=== PATIENT | male | born 1970 | race Two or more races ===

== ENCOUNTER 2019-06-13 09:20 | Inpatient (IN) | payer OTHER ==
[2019-06-13] MEDS ORDERED: Diltiazem 25 MG/5 ML SDV IVPUSH ONE (09:28)
[2019-06-13] MEDS ORDERED: Sodium Chloride 0.9% 1,000 ML IV ONE (09:28)
[2019-06-13] MEDS ORDERED: Rivaroxaban 15 MG Tab PO STA (09:36)
[2019-06-13 10:01] LABS: BLOOD UREA NITROGEN,BUN 13 mg/dL (7.0-18.0); CARBON DIOXIDE,CO2 26.9 mmol/L (21.0-32.0); CHLORIDE,CL 105 mmol/L (98-107); GLUCOSE RANDOM 104 mg/dL (74-106); POTASSIUM,K 4.1 mmol/L (3.5-5.1); SODIUM,NA 141 mmol/L (136-148)
--- NOTE | 2019-06-13 10:14 | EDM.PDOC ---
ED HPI GENERAL MEDICAL PROBLEM - General Chief Complaint: Cardiovascular Problem Stated Complaint: SOB,COUGH Time Seen by Provider: 06/13/19 10:13 Source of Information: Reports: Patient, Family - History of Present Illness INITIAL COMMENTS - FREE TEXT/NARRATIVE: HISTORY AND PHYSICAL: History of present illness: [Patient presents with shortness of breath began last night no chest pain headache dizziness no bowel or urine symptoms] Homans no fever nausea vomiting chills sweats Denies chronic illness disease her medications Review of systems: As per history of present illness and below otherwise all systems reviewed and negative. Past medical history: As per history of present illness and as reviewed below otherwise noncontributory. Surgical history: As per history of present illness and as reviewed below otherwise noncontributory. Social history: No reported history of drug or alcohol abuse. Family history: As per history of present illness and as reviewed below otherwise noncontributory. Physical exam: HEENT: Atraumatic, normocephalic, pupils reactive, negative for conjunctival pallor or scleral icterus, mucous membranes moist, throat clear, neck supple, nontender, trachea midline. Lungs: Clear to auscultation, breath sounds equal bilaterally, chest nontender. Heart: S1S2, regular, negative for clicks, rubs, or JVD. Abdomen: Soft, nondistended, nontender. Negative for masses or hepatosplenomegaly. Negative for costovertebral tenderness. Pelvis: Stable nontender. Genitourinary: Deferred. Rectal: Deferred. Extremities: Atraumatic, negative for cords or calf pain. Neurovascular unremarkable. Neuro: Awake, alert, oriented. Cranial nerves II through XII unremarkable. Cerebellum unremarkable. Motor and sensory unremarkable throughout. Exam nonfocal. Diagnostics: [ TBC CMP UA troponin INR ] Therapeutics: [ normal saline Cardizem ] Impression: [ A. fib with RVR currently rate controlled post medication ] Definitive disposition and diagnosis as appropriate pending reevaluation and review of above. - Related Data Allergies Allergy/AdvReac Type Severity Reaction Status Date / Time No Known Allergies Allergy Verified 06/13/19 09:27 Home Meds: Home Meds . [No Known Home Meds] 06/13/19 [History] Past Medical History - Past Health History Medical/Surgical History: Denies Medical/Surgical History Social & Family History - Family History Family Medical History: Noncontributory - Tobacco Use Smoking Status *Q: Never Smoker - Caffeine Use Caffeine Use: Reports: None - Recreational Drug Use Recreational Drug Use: No ED ROS GENERAL - Review of Systems Review Of Systems: See Below ED EXAM, GENERAL - Physical Exam Exam: See Below Course - Vital Signs Last Recorded V/S: Last Vital Signs Temp 95.7 F 06/13/19 09:24 Pulse 81 06/13/19 10:11 Resp 18 06/13/19 10:11 BP 110/83 06/13/19 10:11 Pulse Ox 95 06/13/19 10:11 - Orders/Labs/Meds Orders: Active Orders 24 hr Category Date Time Status EKG Documentation Completion [RC] STAT Care 06/13/19 09:29 Active Chest 1V Frontal [CR] Stat Exams 06/13/19 09:29 Taken UA RFX MARYLIN AND CULT IF INDIC [URIN] Stat Lab 06/13/19 09:28 Ordered Sodium Chloride 0.9% [Normal Saline] 1,000 ml Med 06/13/19 09:28 Active IV STAT Sodium Chloride 0.9% [Normal Saline] 1,000 ml Med 06/13/19 10:15 Active IV STAT Medication Orders Sodium Chloride (Normal Saline) 1,000 mls @ 999 mls/hr IV STAT ONE Stop: 06/13/19 10:28 Last Admin: 06/13/19 09:41 Dose: 999 mls/hr Sodium Chloride (Normal Saline) 1,000 mls @ 125 mls/hr IV STAT [facility] Labs: Laboratory Tests 06/13/19 06/13/19 06/13/19 Range/Units 09:30 09:30 09:30 WBC 13.26 H (4.0-11.0) K/uL RBC 4.80 (4.50-5.90) M/uL Hgb 15.8 (13.0-17.0) g/dL Hct 46.8 (38.0-50.0) % MCV 97.5 (80.0-98.0) fL MCH 32.9 H (27.0-32.0) pg MCHC 33.8 (31.0-37.0) g/dL RDW Std Deviation 46.6 (28.0-62.0) fl RDW Coeff of Yue 13 (11.0-15.0) % Plt Count 237 (150-400) K/uL MPV 11.50 (7.40-12.00) fL Neut % (Auto) 64.2 (48.0-80.0) % Lymph % (Auto) 26.8 (16.0-40.0) % [place] % (Auto) 6.7 (0.0-15.0) % Eos % (Auto) 1.9 (0.0-7.0) % Baso % (Auto) 0.4 (0.0-1.5) % Neut # (Auto) 8.5 H (1.4-5.7) K/uL Lymph # (Auto) 3.6 H (0.6-2.4) K/uL [place] # (Auto) 0.9 H (0.0-0.8) K/uL Eos # (Auto) 0.3 (0.0-0.7) K/uL Baso # (Auto) 0.1 (0.0-0.1) K/uL Nucleated RBC % 0.0 /100WBC Nucleated RBCs # 0 K/uL INR 0.96 Sodium 141 (136-148) mmol/L Potassium 4.1 (3.5-5.1) mmol/L Chloride 105 (98-107) mmol/L Carbon Dioxide 26.9 (21.0-32.0) mmol/L BUN 13 (7.0-18.0) mg/dL Creatinine 1.0 (0.8-1.3) mg/dL Est Cr Clr Drug Dosing 90.34 mL/min Estimated GFR (MDRD) > 60.0 ml/min Glucose 104 (74-106) mg/dL Calcium 8.7 (8.5-10.1) mg/dL Total Bilirubin 0.5 (0.2-1.0) mg/dL AST 16 (15-37) IU/L ALT 28 (14-63) IU/L Alkaline Phosphatase 73 (46-116) U/L Troponin I < 0.050 (0.000-0.056) ng/mL Total Protein 7.5 (6.4-8.2) g/dL Albumin 3.8 (3.4-5.0) g/dL Globulin 3.7 (2.6-4.0) g/dL Albumin/Globulin Ratio 1.0 (0.9-1.6) Meds: Medications Generic Name Dose Route Start Last Admin Trade Name Katie PRN Reason Stop Dose Admin Sodium Chloride 1,000 mls @ 999 mls/hr 06/13/19 09:28 06/13/19 09:41 Normal Saline IV 06/13/19 10:28 999 mls/hr STAT ONE Administration Sodium Chloride 1,000 mls @ 125 mls/hr 06/13/19 10:15 Normal Saline IV STAT [facility] Discontinued Medications Generic Name Dose Route Start Last Admin Trade Name Katie PRN Reason Stop Dose Admin Diltiazem HCl 25 mg 06/13/19 09:28 06/13/19 09:41 Diltiazem IVPUSH 06/13/19 09:29 25 mg ONETIME ONE Administration Rivaroxaban 15 mg 06/13/19 09:36 06/13/19 10:09 Xarelto PO 06/13/19 09:37 15 mg NOW STA Administration Departure - Departure Time of Disposition: 10:29 Disposition: Refer to Observation Condition: Fair Clinical Impression: Atrial fibrillation with RVR Referrals: PCP,None [Primary Care Provider] - Forms: ED Department Discharge - My Orders Last 24 Hours: My Active Orders 06/13/19 09:28 UA RFX MARYLIN AND CULT IF INDIC [URIN] Stat Sodium Chloride 0.9% [Normal Saline] 1,000 ml IV STAT 06/13/19 09:29 EKG Documentation Completion [RC] STAT Chest 1V Frontal [CR] Stat 06/13/19 10:15 Sodium Chloride 0.9% [Normal Saline] 1,000 ml IV STAT - Assessment/Plan Last 24 Hours: My Active Orders 06/13/19 09:28 UA RFX MARYLIN AND CULT IF INDIC [URIN] Stat Sodium Chloride 0.9% [Normal Saline] 1,000 ml IV STAT 06/13/19 09:29 EKG Documentation Completion [RC] STAT Chest 1V Frontal [CR] Stat 06/13/19 10:15 Sodium Chloride 0.9% [Normal Saline] 1,000 ml IV STAT
[2019-06-13] MEDS ORDERED: Sodium Chloride 0.9% 1,000 ML IV SCH (10:15)
--- NOTE | 2019-06-13 10:31 | CR ---
INDICATION: Chest pain, dyspnea. TECHNIQUE: Chest 1 view COMPARISON: None. FINDINGS: Cardiomegaly with increased pulmonary vascularity. Diffusely increased interstitial opacities greatest in the mid and lower lungs bilaterally. Atelectasis or fluid along the right fissure. No pleural effusion or pneumothorax. IMPRESSION: Cardiomegaly with increased pulmonary vascularity and diffusely increased interstitial opacities likely due to edema. Dictated by Jessica Prince MD @ Jun 13 2019 10:28AM Signed by Dr. Jessica Prince @ Jun 13 2019 10:30AM
[2019-06-13] MEDS ORDERED: Magnesium Sulfate/Water 2 GM in Premix Bag 1 BAG IV ONE (11:28)
--- NOTE | 2019-06-13 13:19 | PCM.HP.2 ---
H&P History of Present Illness - General Date of Service: 06/13/19 Admit Problem/Dx: Admission Diagnosis/Problem Admission Diagnosis/Problem Atrial fibrillation - History of Present Illness Initial Comments - Free Text/Narative: 48 yo male who presented with several month history of exertional dyspnea, paroxysmal nocturnal dyspnea, and orthopnea. Patient also reports a 20 LB weight gain. He denies any chest pain, cough or fevers. He denies any palpitations. I the ED he was noted to be in atrial fibrillation with a HR in the 130s. He was given IV diltizem and fluids with improvement in his heart rate. - Related Data Allergies/Adverse Reactions: Allergies Allergy/AdvReac Type Severity Reaction Status Date / Time No Known Allergies Allergy Verified 06/13/19 11:08 Home Medications: Home Meds . [No Known Home Meds] 06/13/19 [History] Past Medical History - Past Health History Medical/Surgical History: Denies Medical/Surgical History Social & Family History - Family History Family Medical History: Noncontributory - Tobacco Use Smoking Status *Q: Light Tobacco Smoker Years of Tobacco use: 4 Packs/Tins Daily: 0.1 Second Hand Smoke Exposure: No - Caffeine Use Caffeine Use: Reports: Coffee, Energy Drinks - Recreational Drug Use Recreational Drug Use: No H&P Review of Systems - Review of Systems: Review Of Systems: ROS reveals no pertinent complaints other than HPI. Exam - Exam Exam: See Below - Vital Signs Vital Signs: Last Vital Signs Temp 35.7 C 06/13/19 11:23 Pulse 59 L 06/13/19 11:23 Resp 18 06/13/19 11:23 BP 119/85 06/13/19 11:23 Pulse Ox 92 L 06/13/19 11:23 Weight: 123.921 kg - Exam General: Alert, Oriented HEENT: Mucosa Moist & [place] Lungs: Clear to Auscultation, Normal Respiratory Effort Cardiovascular: Regular Rate, Irregular Rhythm GI/Abdominal Exam: Soft, Non-Tender, No Distention Extremities: Non-Tender, No Pedal Edema Skin: Warm, Dry, Intact - Patient Data Lab Results Last 24 hrs: Laboratory Results - last 24 hr 06/13/19 06/13/19 06/13/19 Range/Units 09:30 09:30 09:30 WBC 13.26 H (4.0-11.0) K/uL RBC 4.80 (4.50-5.90) M/uL Hgb 15.8 (13.0-17.0) g/dL Hct 46.8 (38.0-50.0) % MCV 97.5 (80.0-98.0) fL MCH 32.9 H (27.0-32.0) pg MCHC 33.8 (31.0-37.0) g/dL RDW Std Deviation 46.6 (28.0-62.0) fl RDW Coeff of Yue 13 (11.0-15.0) % Plt Count 237 (150-400) K/uL MPV 11.50 (7.40-12.00) fL Neut % (Auto) 64.2 (48.0-80.0) % Lymph % (Auto) 26.8 (16.0-40.0) % [place] % (Auto) 6.7 (0.0-15.0) % Eos % (Auto) 1.9 (0.0-7.0) % Baso % (Auto) 0.4 (0.0-1.5) % Neut # (Auto) 8.5 H (1.4-5.7) K/uL Lymph # (Auto) 3.6 H (0.6-2.4) K/uL [place] # (Auto) 0.9 H (0.0-0.8) K/uL Eos # (Auto) 0.3 (0.0-0.7) K/uL Baso # (Auto) 0.1 (0.0-0.1) K/uL Nucleated RBC % 0.0 /100WBC Nucleated RBCs # 0 K/uL INR 0.96 Sodium 141 (136-148) mmol/L Potassium 4.1 (3.5-5.1) mmol/L Chloride 105 (98-107) mmol/L Carbon Dioxide 26.9 (21.0-32.0) mmol/L BUN 13 (7.0-18.0) mg/dL Creatinine 1.0 (0.8-1.3) mg/dL Est Cr Clr Drug Dosing 90.34 mL/min Estimated GFR (MDRD) > 60.0 ml/min Glucose 104 (74-106) mg/dL Calcium 8.7 (8.5-10.1) mg/dL Magnesium (1.8-2.4) mg/dL Total Bilirubin 0.5 (0.2-1.0) mg/dL AST 16 (15-37) IU/L ALT 28 (14-63) IU/L Alkaline Phosphatase 73 (46-116) U/L Troponin I < 0.050 (0.000-0.056) ng/mL B-Natriuretic Peptide (<100) PG/ML Total Protein 7.5 (6.4-8.2) g/dL Albumin 3.8 (3.4-5.0) g/dL Globulin 3.7 (2.6-4.0) g/dL Albumin/Globulin Ratio 1.0 (0.9-1.6) Urine Color Urine Appearance Urine pH (5.0-8.0) Ur Specific [place] (1.001-1.035) Urine Protein (NEGATIVE) mg/dL Urine Glucose (UA) (NEGATIVE) mg/dL Urine Ketones (NEGATIVE) mg/dL Urine Occult Blood (NEGATIVE) Urine Nitrite (NEGATIVE) Urine Bilirubin (NEGATIVE) Urine Urobilinogen (<2.0) EU/dL Ur Leukocyte Esterase (NEGATIVE) 06/13/19 06/13/19 06/13/19 Range/Units 09:30 09:30 11:25 WBC (4.0-11.0) K/uL RBC (4.50-5.90) M/uL Hgb (13.0-17.0) g/dL Hct (38.0-50.0) % MCV (80.0-98.0) fL MCH (27.0-32.0) pg MCHC (31.0-37.0) g/dL RDW Std Deviation (28.0-62.0) fl RDW Coeff of Yue (11.0-15.0) % Plt Count (150-400) K/uL MPV (7.40-12.00) fL Neut % (Auto) (48.0-80.0) % Lymph % (Auto) (16.0-40.0) % [place] % (Auto) (0.0-15.0) % Eos % (Auto) (0.0-7.0) % Baso % (Auto) (0.0-1.5) % Neut # (Auto) (1.4-5.7) K/uL Lymph # (Auto) (0.6-2.4) K/uL [place] # (Auto) (0.0-0.8) K/uL Eos # (Auto) (0.0-0.7) K/uL Baso # (Auto) (0.0-0.1) K/uL Nucleated RBC % /100WBC Nucleated RBCs # K/uL INR Sodium (136-148) mmol/L Potassium (3.5-5.1) mmol/L Chloride (98-107) mmol/L Carbon Dioxide (21.0-32.0) mmol/L BUN (7.0-18.0) mg/dL Creatinine (0.8-1.3) mg/dL Est Cr Clr Drug Dosing mL/min Estimated GFR (MDRD) ml/min Glucose (74-106) mg/dL Calcium (8.5-10.1) mg/dL Magnesium 1.8 (1.8-2.4) mg/dL Total Bilirubin (0.2-1.0) mg/dL AST (15-37) IU/L ALT (14-63) IU/L Alkaline Phosphatase (46-116) U/L Troponin I (0.000-0.056) ng/mL B-Natriuretic Peptide 353 H (<100) PG/ML Total Protein (6.4-8.2) g/dL Albumin (3.4-5.0) g/dL Globulin (2.6-4.0) g/dL Albumin/Globulin Ratio (0.9-1.6) Urine Color YELLOW Urine Appearance CLEAR Urine pH 5.5 (5.0-8.0) Ur Specific [place] 1.025 (1.001-1.035) Urine Protein NEGATIVE (NEGATIVE) mg/dL Urine Glucose (UA) NEGATIVE (NEGATIVE) mg/dL Urine Ketones NEGATIVE (NEGATIVE) mg/dL Urine Occult Blood NEGATIVE (NEGATIVE) Urine Nitrite NEGATIVE (NEGATIVE) Urine Bilirubin NEGATIVE (NEGATIVE) Urine Urobilinogen 0.2 (<2.0) EU/dL Ur Leukocyte Esterase NEGATIVE (NEGATIVE) Result Diagrams: 06/14/19 06:05 06/14/19 06:05 Problem List Initiated/Reviewed/Updated: Yes Orders Last 24hrs: Active Orders 24 hr Category Date Time Status Admission Status [Patient Status] [ADT] Stat ADT 06/13/19 10:31 Active Antiembolic Devices [RC] PER UNIT ROUTINE Care 06/13/19 13:06 Ordered EKG Documentation Completion [RC] STAT Care 06/13/19 09:29 Active Oxygen Therapy [RC] PRN Care 06/13/19 13:05 Ordered Telemetry Monitoring [Cardiac Monitoring] [RC] Q8H Care 06/13/19 10:35 Active Up ad [place] [RC] ASDIRECTED Care 06/13/19 13:05 Ordered VTE/DVT Education [RC] PER UNIT ROUTINE Care 06/13/19 13:05 Ordered Vital Signs [RC] Q4H Care 06/13/19 13:05 Ordered Fluid Restriction [DIET] Diet 06/13/19 Dinner Ordered Regular Diet [DIET] Diet 06/13/19 Breakfast Active Echo Comp wo Cont [US] Stat Exams 06/13/19 10:32 Taken BASIC METABOLIC PANEL,BMP [CHEM] AM Lab 06/14/19 05:11 Ordered BASIC METABOLIC PANEL,BMP [CHEM] AM Lab 06/15/19 05:11 Ordered BASIC METABOLIC PANEL,BMP [CHEM] AM Lab 06/16/19 05:11 Ordered CBC WITH AUTO DIFF [HEME] AM Lab 06/14/19 05:11 Ordered CBC WITH AUTO DIFF [HEME] AM Lab 06/15/19 05:11 Ordered CBC WITH AUTO DIFF [HEME] AM Lab 06/16/19 05:11 Ordered Furosemide [Lasix] Med 06/13/19 13:15 Ordered 40 mg IVPUSH DAILY Rivaroxaban [Xarelto] Med 06/14/19 17:30 Ordered 20 mg PO WITHDINNER Sequential Compression Device [OM.PC] Per Unit Routine Oth 06/13/19 13:06 Ordered Resuscitation Status Routine Resus Stat 06/13/19 13:05 Ordered Medication Orders Furosemide (Lasix) 40 mg IVPUSH DAILY [facility] Rivaroxaban (Xarelto) 20 mg PO WITHDINNER [facility] Assessment/Plan Comment:: 48 yo male admitted for atrial fibrillation with RVR and new onset CHF. atrial fibrillation: rate currently controlled. will continue to monitor on telemetry, Patient has been started on Xarelto CHF: echocardiogram report pending. Will give Lasix IV 40mg now.
[2019-06-13] MEDS: Furosemide 40 MG/4 ML VIAL IVPUSH SCH (13:23)
[2019-06-13] MEDS ORDERED: Benzocaine/Cetylpyridinium/Menthol Lozenge MUCMEM PRN (16:20)
[2019-06-14 06:41] LABS: BLOOD UREA NITROGEN,BUN 12 mg/dL (7.0-18.0); CHLORIDE,CL 106 mmol/L (98-107); GLUCOSE RANDOM 105 mg/dL (74-106); POTASSIUM,K 3.9 mmol/L (3.5-5.1); SODIUM,NA 141 mmol/L (136-148)
[2019-06-14] MEDS: Furosemide 40 MG/4 ML VIAL IVPUSH SCH ×2 (09:26→14:37)
[2019-06-14] MEDS ORDERED: Warfarin 10 MG Tab PO SCH (14:00)
[2019-06-14] MEDS: Warfarin Sliding Scale PO SCH (14:43)
--- NOTE | 2019-06-14 15:57 | PCM.PN ---
- General Info Date of Service: 06/14/19 Subjective Update: 48 y/o male admitted for AFib with RVR. This morning patient denies any chest pain, dyspnea. States he feels better. No palpitations. - Patient Data Vitals - Most Recent: Last Vital Signs Temp 30.3 C L 06/14/19 12:00 Pulse 103 H 06/14/19 12:00 Resp 20 06/14/19 12:00 BP 126/73 06/14/19 12:00 Pulse Ox 93 L 06/14/19 12:00 Weight - Most Recent: 117 kg I&O - Last 24 Hours: Intake & Output 06/14/19 06/14/19 06/14/19 06:59 14:59 22:59 Intake Total 700 Output Total 1000 Balance -300 Lab Results Last 24 Hours: Laboratory Results - last 24 hr 06/14/19 06/14/19 Range/Units 06:05 06:05 WBC 9.87 (4.0-11.0) K/uL RBC 4.48 L (4.50-5.90) M/uL Hgb 14.7 (13.0-17.0) g/dL Hct 43.4 (38.0-50.0) % MCV 96.9 (80.0-98.0) fL MCH 32.8 H (27.0-32.0) pg MCHC 33.9 (31.0-37.0) g/dL RDW Std Deviation 45.8 (28.0-62.0) fl RDW Coeff of Yue 13 (11.0-15.0) % Plt Count 216 (150-400) K/uL MPV 11.40 (7.40-12.00) fL Neut % (Auto) 56.5 (48.0-80.0) % Lymph % (Auto) 32.6 (16.0-40.0) % [place] % (Auto) 7.9 (0.0-15.0) % Eos % (Auto) 2.8 (0.0-7.0) % Baso % (Auto) 0.2 (0.0-1.5) % Neut # (Auto) 5.6 (1.4-5.7) K/uL Lymph # (Auto) 3.2 H (0.6-2.4) K/uL [place] # (Auto) 0.8 (0.0-0.8) K/uL Eos # (Auto) 0.3 (0.0-0.7) K/uL Baso # (Auto) 0.0 (0.0-0.1) K/uL Nucleated RBC % 0.0 /100WBC Nucleated RBCs # 0 K/uL Sodium 141 (136-148) mmol/L Potassium 3.9 (3.5-5.1) mmol/L Chloride 106 (98-107) mmol/L Carbon Dioxide 24.0 (21.0-32.0) mmol/L BUN 12 (7.0-18.0) mg/dL Creatinine 0.9 (0.8-1.3) mg/dL Est Cr Clr Drug Dosing 100.38 mL/min Estimated GFR (MDRD) > 60.0 ml/min Glucose 105 (74-106) mg/dL Calcium 8.3 L (8.5-10.1) mg/dL Med Orders - Current: Current Medications Benzocaine/Menthol (Cepacol Sore Throat) 1 lozenge MUCMEM Q6H PRN PRN Reason: Sore Throat Last Admin: 06/13/19 16:26 Dose: 1 lozenge Furosemide (Lasix) 40 mg IVPUSH BIDDIURETIC [facility] Last Admin: 06/14/19 14:37 Dose: 40 mg Warfarin Sodium (Coumadin Sliding Scale) 0 each PO DAILY@1400 [facility] Last Admin: 06/14/19 14:43 Dose: Not Given Discontinued Medications Diltiazem HCl (Diltiazem) 25 mg IVPUSH ONETIME ONE Stop: 06/13/19 09:29 Last Admin: 06/13/19 09:41 Dose: 25 mg Furosemide (Lasix) 40 mg IVPUSH DAILY [facility] Last Admin: 06/14/19 09:26 Dose: 40 mg Sodium Chloride (Normal Saline) 1,000 mls @ 999 mls/hr IV STAT ONE Stop: 06/13/19 10:28 Last Admin: 06/13/19 09:41 Dose: 999 mls/hr Sodium Chloride (Normal Saline) 1,000 mls @ 125 mls/hr IV STAT [facility] Last Admin: 06/13/19 10:32 Dose: 125 mls/hr Magnesium Sulfate 2 gm/ Premix 50 mls @ 50 mls/hr IV ONETIME ONE Stop: 06/13/19 12:27 Last Admin: 06/13/19 11:59 Dose: 50 mls/hr Rivaroxaban (Xarelto) 15 mg PO NOW STA Stop: 06/13/19 09:37 Last Admin: 06/13/19 10:09 Dose: 15 mg Rivaroxaban (Xarelto) 20 mg PO WITHDINNER [facility] Warfarin Sodium (Coumadin) 10 mg PO DAILY@1400 [facility] Stop: 06/14/19 14:01 Last Admin: 06/14/19 14:37 Dose: 10 mg - Exam General: Alert, Oriented, Cooperative, No Acute Distress Lungs: Clear to Auscultation. No: Crackles, Wheezing Cardiovascular: Regular Rate, Irregular Rhythm GI/Abdominal Exam: Normal Bowel Sounds, Soft, Non-Tender, No Distention Extremities: Normal Inspection, No Pedal Edema Skin: Warm, Dry - Problem List Review Problem List Initiated/Reviewed/Updated: Yes - My Orders Last 24 Hours: My Active Orders 06/14/19 11:54 Height and Weight [RC] DAILY Intake and Output Strict [RC] Q12H 06/14/19 11:55 Ambulate [RC] ASDIRECTED 06/14/19 Dinner Heart Healthy Diet [DIET] - Plan Plan:: A: 1. AFib, rate controlled. 2. Acute CHF exacerbation P: 1. AFib, rate controlled. Will start warfarin 10 mg PO once. Recheck INR and make adjustments as necessary. Discontinued Xarelto. Will need outpatient sleep study and EKG stress test. 2. Acute CHF exacerbation. Pending Echo results. Will give Lasix 40 mg IV BID. STrict I/O, daily weights. Dispo: likely DC tomorrow.
[2019-06-14] MEDS ORDERED: Rivaroxaban 10 MG Tab PO SCH (17:30)
[2019-06-15 05:29] LABS: BLOOD UREA NITROGEN,BUN 16 mg/dL (7.0-18.0); CARBON DIOXIDE,CO2 24.4 mmol/L (21.0-32.0); CHLORIDE,CL 106 mmol/L (98-107); GLUCOSE RANDOM 109 mg/dL (74-106); POTASSIUM,K 3.8 mmol/L (3.5-5.1); SODIUM,NA 141 mmol/L (136-148)
[2019-06-15] MEDS: Furosemide 40 MG/4 ML VIAL IVPUSH SCH ×2 (09:02→14:48)
[2019-06-15] MEDS: Lisinopril 5 MG Tab PO SCH (10:27)
[2019-06-15] MEDS: Metoprolol Succinate 50 MG Tab.ER PO SCH (10:35)
[2019-06-15] MEDS ORDERED: Warfarin 10 MG Tab PO SCH (14:00)
[2019-06-15] MEDS: Warfarin Sliding Scale PO SCH (14:42)
--- NOTE | 2019-06-15 18:07 | ECHO ---
The echocardiogram repot can be seen in this patient's EMR (Electronic Medical Records) in the REPORTS section. The echocardiogram report has also been scanned into PACS and can be seen there as well. IRVIN
--- NOTE | 2019-06-15 18:25 | PCM.PN ---
- General Info Date of Service: 06/15/19 Subjective Update: no acute events overnight. rate controlled. denies any chest pain, dyspnea. Feeling better. - Patient Data Vitals - Most Recent: Last Vital Signs Temp 35.3 C 06/15/19 16:00 Pulse 76 06/15/19 16:00 Resp 18 06/15/19 16:00 BP 114/66 06/15/19 16:00 Pulse Ox 94 L 06/15/19 16:00 Weight - Most Recent: 114 kg I&O - Last 24 Hours: Intake & Output 06/15/19 06/15/19 06/15/19 06:59 14:59 22:59 Intake Total 800 900 Output Total 675 1800 Balance 125 -900 Lab Results Last 24 Hours: Laboratory Results - last 24 hr 06/15/19 06/15/19 06/15/19 Range/Units 05:05 05:05 05:05 WBC 11.10 H (4.0-11.0) K/uL RBC 4.70 (4.50-5.90) M/uL Hgb 15.5 (13.0-17.0) g/dL Hct 45.4 (38.0-50.0) % MCV 96.6 (80.0-98.0) fL MCH 33.0 H (27.0-32.0) pg MCHC 34.1 (31.0-37.0) g/dL RDW Std Deviation 44.8 (28.0-62.0) fl RDW Coeff of Yue 13 (11.0-15.0) % Plt Count 210 (150-400) K/uL MPV 11.10 (7.40-12.00) fL Neut % (Auto) 60.4 (48.0-80.0) % Lymph % (Auto) 27.4 (16.0-40.0) % [place] % (Auto) 9.3 (0.0-15.0) % Eos % (Auto) 2.5 (0.0-7.0) % Baso % (Auto) 0.4 (0.0-1.5) % Neut # (Auto) 6.7 H (1.4-5.7) K/uL Lymph # (Auto) 3.0 H (0.6-2.4) K/uL [place] # (Auto) 1.0 H (0.0-0.8) K/uL Eos # (Auto) 0.3 (0.0-0.7) K/uL Baso # (Auto) 0.0 (0.0-0.1) K/uL Nucleated RBC % 0.0 /100WBC Nucleated RBCs # 0 K/uL INR 1.07 Sodium 141 (136-148) mmol/L Potassium 3.8 (3.5-5.1) mmol/L Chloride 106 (98-107) mmol/L Carbon Dioxide 24.4 (21.0-32.0) mmol/L BUN 16 (7.0-18.0) mg/dL Creatinine 1.0 (0.8-1.3) mg/dL Est Cr Clr Drug Dosing 90.34 mL/min Estimated GFR (MDRD) > 60.0 ml/min Glucose 109 H (74-106) mg/dL Calcium 9.0 (8.5-10.1) mg/dL Med Orders - Current: Current Medications Benzocaine/Menthol (Cepacol Sore Throat) 1 lozenge MUCMEM Q6H PRN PRN Reason: Sore Throat Last Admin: 06/13/19 16:26 Dose: 1 lozenge Furosemide (Lasix) 40 mg IVPUSH BIDDIURETIC [facility] Last Admin: 06/15/19 14:48 Dose: 40 mg Lisinopril (Prinivil) 5 mg PO DAILY [facility] Last Admin: 06/15/19 10:27 Dose: 5 mg Metoprolol Succinate (Toprol Xl) 50 mg PO DAILY [facility] Last Admin: 06/15/19 10:35 Dose: 50 mg Warfarin Sodium (Coumadin Sliding Scale) 0 each PO DAILY@1400 [facility] Last Admin: 06/15/19 14:42 Dose: Not Given Discontinued Medications Diltiazem HCl (Diltiazem) 25 mg IVPUSH ONETIME ONE Stop: 06/13/19 09:29 Last Admin: 06/13/19 09:41 Dose: 25 mg Furosemide (Lasix) 40 mg IVPUSH DAILY [facility] Last Admin: 06/14/19 09:26 Dose: 40 mg Sodium Chloride (Normal Saline) 1,000 mls @ 999 mls/hr IV STAT ONE Stop: 06/13/19 10:28 Last Admin: 06/13/19 09:41 Dose: 999 mls/hr Sodium Chloride (Normal Saline) 1,000 mls @ 125 mls/hr IV STAT [facility] Last Admin: 06/13/19 10:32 Dose: 125 mls/hr Magnesium Sulfate 2 gm/ Premix 50 mls @ 50 mls/hr IV ONETIME ONE Stop: 06/13/19 12:27 Last Admin: 06/13/19 11:59 Dose: 50 mls/hr Rivaroxaban (Xarelto) 15 mg PO NOW STA Stop: 06/13/19 09:37 Last Admin: 06/13/19 10:09 Dose: 15 mg Rivaroxaban (Xarelto) 20 mg PO WITHDINNER [facility] Warfarin Sodium (Coumadin) 10 mg PO DAILY@1400 [facility] Stop: 06/14/19 14:01 Last Admin: 06/14/19 14:37 Dose: 10 mg Warfarin Sodium (Coumadin) 10 mg PO 06/15/19@1400 [facility] Stop: 06/15/19 14:01 Last Admin: 06/15/19 14:48 Dose: 10 mg - Exam General: Alert, Oriented, Cooperative, No Acute Distress Lungs: Clear to Auscultation, Normal Respiratory Effort. No: Crackles, Wheezing Cardiovascular: Regular Rate, Irregular Rhythm GI/Abdominal Exam: Normal Bowel Sounds, Soft, Non-Tender Extremities: Pedal Edema Skin: Warm, Dry - Problem List Review Problem List Initiated/Reviewed/Updated: Yes - My Orders Last 24 Hours: My Active Orders 06/15/19 10:54 Communication Order [RC] PRN - Plan Plan:: A: 1. Acute CHF with reduced EF 20-25% 2. Afib, rate controlled on warfarin P: 1. Will continue to diurese with IV lasix. Continue with warfarin. Started metoprolol, lisinopril. Likely DC tomorrow. Will need follow-up with cardiology as outpatient.
[2019-06-16 06:17] LABS: BLOOD UREA NITROGEN,BUN 24 mg/dL (7.0-18.0); CARBON DIOXIDE,CO2 26.2 mmol/L (21.0-32.0); CHLORIDE,CL 104 mmol/L (98-107); GLUCOSE RANDOM 97 mg/dL (74-106); POTASSIUM,K 3.7 mmol/L (3.5-5.1); SODIUM,NA 140 mmol/L (136-148)
[2019-06-16] MEDS: Furosemide 40 MG/4 ML VIAL IVPUSH SCH ×2 (09:03→14:18)
[2019-06-16] MEDS: Metoprolol Succinate 50 MG Tab.ER PO SCH (09:04)
[2019-06-16] MEDS: Lisinopril 5 MG Tab PO SCH (09:05)
[2019-06-16 11:17] LABS: HEMOGLOBIN A1C 5.6 % (4.5-6.2)
[2019-06-16] MEDS ORDERED: Warfarin 10 MG Tab PO SCH (14:00)
[2019-06-16] MEDS: Warfarin Sliding Scale PO SCH (14:12)
--- NOTE | 2019-06-16 15:02 | PCM.PN ---
<Jean Sosa - Last Filed: 06/16/19 15:05> - General Info Date of Service: 06/16/19 Subjective Update: No acute events overnight. denies chest pain, dyspnea. Feels much better today he states. No palpitations, abdominal pain, diaphoresis. - Patient Data Vitals - Most Recent: Last Vital Signs Temp 35.1 C L 06/16/19 12:00 Pulse 96 06/16/19 12:00 Resp 18 06/16/19 12:00 BP 113/79 06/16/19 12:00 Pulse Ox 92 L 06/16/19 12:00 Weight - Most Recent: 113.6 kg I&O - Last 24 Hours: Intake & Output 06/15/19 06/16/19 06/16/19 22:59 06:59 14:59 Intake Total 900 900 120 Output Total 1800 750 Balance -900 150 120 Lab Results Last 24 Hours: Laboratory Results - last 24 hr 06/16/19 06/16/19 06/16/19 Range/Units 05:50 05:50 05:50 WBC 10.68 (4.0-11.0) K/uL RBC 4.76 (4.50-5.90) M/uL Hgb 15.5 (13.0-17.0) g/dL Hct 46.0 (38.0-50.0) % MCV 96.6 (80.0-98.0) fL MCH 32.6 H (27.0-32.0) pg MCHC 33.7 (31.0-37.0) g/dL RDW Std Deviation 45.4 (28.0-62.0) fl RDW Coeff of Yue 13 (11.0-15.0) % Plt Count 234 (150-400) K/uL MPV 11.40 (7.40-12.00) fL Neut % (Auto) 57.7 (48.0-80.0) % Lymph % (Auto) 30.2 (16.0-40.0) % [place] % (Auto) 8.9 (0.0-15.0) % Eos % (Auto) 2.9 (0.0-7.0) % Baso % (Auto) 0.3 (0.0-1.5) % Neut # (Auto) 6.2 H (1.4-5.7) K/uL Lymph # (Auto) 3.2 H (0.6-2.4) K/uL [place] # (Auto) 1.0 H (0.0-0.8) K/uL Eos # (Auto) 0.3 (0.0-0.7) K/uL Baso # (Auto) 0.0 (0.0-0.1) K/uL Nucleated RBC % 0.0 /100WBC Nucleated RBCs # 0 K/uL INR 1.17 Sodium 140 (136-148) mmol/L Potassium 3.7 (3.5-5.1) mmol/L Chloride 104 (98-107) mmol/L Carbon Dioxide 26.2 (21.0-32.0) mmol/L BUN 24 H (7.0-18.0) mg/dL Creatinine 1.1 (0.8-1.3) mg/dL Est Cr Clr Drug Dosing 81.85 mL/min Estimated GFR (MDRD) > 60.0 ml/min Glucose 97 (74-106) mg/dL Hemoglobin A1c (4.5-6.2) % Calcium 9.1 (8.5-10.1) mg/dL Triglycerides (0-200) mg/dL Cholesterol (50-200) mg/dL LDL Cholesterol, Calc (60-180) mg/dL VLDL Cholesterol (5-55) mg/dL HDL Cholesterol (40-60) mg/dL Cholesterol/HDL Ratio (3.3-6.0) TSH 3rd Generation (0.36-3.74) uIU/mL 06/16/19 06/16/19 Range/Units 05:50 05:50 WBC (4.0-11.0) K/uL RBC (4.50-5.90) M/uL Hgb (13.0-17.0) g/dL Hct (38.0-50.0) % MCV (80.0-98.0) fL MCH (27.0-32.0) pg MCHC (31.0-37.0) g/dL RDW Std Deviation (28.0-62.0) fl RDW Coeff of Yue (11.0-15.0) % Plt Count (150-400) K/uL MPV (7.40-12.00) fL Neut % (Auto) (48.0-80.0) % Lymph % (Auto) (16.0-40.0) % [place] % (Auto) (0.0-15.0) % Eos % (Auto) (0.0-7.0) % Baso % (Auto) (0.0-1.5) % Neut # (Auto) (1.4-5.7) K/uL Lymph # (Auto) (0.6-2.4) K/uL [place] # (Auto) (0.0-0.8) K/uL Eos # (Auto) (0.0-0.7) K/uL Baso # (Auto) (0.0-0.1) K/uL Nucleated RBC % /100WBC Nucleated RBCs # K/uL INR Sodium (136-148) mmol/L Potassium (3.5-5.1) mmol/L Chloride (98-107) mmol/L Carbon Dioxide (21.0-32.0) mmol/L BUN (7.0-18.0) mg/dL Creatinine (0.8-1.3) mg/dL Est Cr Clr Drug Dosing mL/min Estimated GFR (MDRD) ml/min Glucose (74-106) mg/dL Hemoglobin A1c 5.6 (4.5-6.2) % Calcium (8.5-10.1) mg/dL Triglycerides 112 (0-200) mg/dL Cholesterol 178 (50-200) mg/dL LDL Cholesterol, Calc 115 (60-180) mg/dL VLDL Cholesterol 22 (5-55) mg/dL HDL Cholesterol 41 (40-60) mg/dL Cholesterol/HDL Ratio 4.3 (3.3-6.0) TSH 3rd Generation 2.03 (0.36-3.74) uIU/mL Med Orders - Current: Current Medications Atorvastatin Calcium (Lipitor) 80 mg PO BEDTIME [facility] Benzocaine/Menthol (Cepacol Sore Throat) 1 lozenge MUCMEM Q6H PRN PRN Reason: Sore Throat Last Admin: 06/13/19 16:26 Dose: 1 lozenge Furosemide (Lasix) 40 mg IVPUSH BIDDIURETIC [facility] Last Admin: 06/16/19 14:18 Dose: 40 mg Lisinopril (Prinivil) 5 mg PO DAILY [facility] Last Admin: 06/16/19 09:05 Dose: 5 mg Metoprolol Succinate (Toprol Xl) 50 mg PO DAILY [facility] Last Admin: 06/16/19 09:04 Dose: 50 mg Warfarin Sodium (Coumadin Sliding Scale) 0 each PO DAILY@1400 [facility] Last Admin: 06/16/19 14:12 Dose: Not Given Discontinued Medications Diltiazem HCl (Diltiazem) 25 mg IVPUSH ONETIME ONE Stop: 06/13/19 09:29 Last Admin: 06/13/19 09:41 Dose: 25 mg Furosemide (Lasix) 40 mg IVPUSH DAILY [facility] Last Admin: 06/14/19 09:26 Dose: 40 mg Sodium Chloride (Normal Saline) 1,000 mls @ 999 mls/hr IV STAT ONE Stop: 06/13/19 10:28 Last Admin: 06/13/19 09:41 Dose: 999 mls/hr Sodium Chloride (Normal Saline) 1,000 mls @ 125 mls/hr IV STAT [facility] Last Admin: 06/13/19 10:32 Dose: 125 mls/hr Magnesium Sulfate 2 gm/ Premix 50 mls @ 50 mls/hr IV ONETIME ONE Stop: 06/13/19 12:27 Last Admin: 06/13/19 11:59 Dose: 50 mls/hr Rivaroxaban (Xarelto) 15 mg PO NOW [facility] Stop: 06/13/19 09:37 Last Admin: 06/13/19 10:09 Dose: 15 mg [facility] ([facility]) [facility] Warfarin Sodium (Coumadin) 10 mg PO DAILY@1400 [facility] Stop: 06/14/19 14:01 Last Admin: 06/14/19 14:37 Dose: 10 mg Warfarin Sodium (Coumadin) 10 mg PO 06/15/19@1400 [facility] Stop: 06/15/19 14:01 Last Admin: 06/15/19 14:48 Dose: 10 mg Warfarin Sodium (Coumadin) 10 mg PO 06/16/19@1400 [facility] Stop: 06/16/19 14:01 Last Admin: 06/16/19 14:18 Dose: 10 mg - Exam General: Alert, Oriented, Cooperative, No Acute Distress Lungs: Clear to Auscultation, Normal Respiratory Effort. No: Crackles, Wheezing Cardiovascular: Regular Rate, Irregular Rhythm GI/Abdominal Exam: Normal Bowel Sounds, Soft, Non-Tender Extremities: Other (mild lower extremity edema, much improved from date of admission) Skin: Warm, Dry - Problem List Review Problem List Initiated/Reviewed/Updated: Yes - My Orders Last 24 Hours: My Active Orders 06/16/19 12:35 EKG Documentation Completion [RC] ROUTINE 06/16/19 14:43 Ang Coronary Art w 3D [CT] Urgent 06/16/19 21:00 atorvaSTATin [Lipitor] 80 mg PO BEDTIME - Plan Plan:: A: 1. Acute CHF exacerbation with reduced EF 20-25% 2. Afib, rate controlled on warfarin P: 1. Ordered CT chest to r/o PE. Will continue to diurese with IV lasix and continue meds for HFrEF and Afib. Will need to follow-up with cardiology as outpatient, coumadin clinic and get sleep study. Dispo: likely tomorrow. <Jose Alberto Aquino - Last Filed: 06/16/19 17:23> - Patient Data Vitals - Most Recent: Last Vital Signs Temp 35.5 C 06/16/19 16:00 Pulse 69 06/16/19 16:00 Resp 18 06/16/19 16:00 BP 112/74 06/16/19 16:00 Pulse Ox 97 06/16/19 16:00 I&O - Last 24 Hours: Intake & Output 06/16/19 06/16/19 06/16/19 06:59 14:59 22:59 Intake Total 900 120 900 Output Total 750 1175 Balance 150 120 -275 Lab Results Last 24 Hours: Laboratory Results - last 24 hr 06/16/19 06/16/19 06/16/19 Range/Units 05:50 05:50 05:50 WBC 10.68 (4.0-11.0) K/uL RBC 4.76 (4.50-5.90) M/uL Hgb 15.5 (13.0-17.0) g/dL Hct 46.0 (38.0-50.0) % MCV 96.6 (80.0-98.0) fL MCH 32.6 H (27.0-32.0) pg MCHC 33.7 (31.0-37.0) g/dL RDW Std Deviation 45.4 (28.0-62.0) fl RDW Coeff of Yue 13 (11.0-15.0) % Plt Count 234 (150-400) K/uL MPV 11.40 (7.40-12.00) fL Neut % (Auto) 57.7 (48.0-80.0) % Lymph % (Auto) 30.2 (16.0-40.0) % [place] % (Auto) 8.9 (0.0-15.0) % Eos % (Auto) 2.9 (0.0-7.0) % Baso % (Auto) 0.3 (0.0-1.5) % Neut # (Auto) 6.2 H (1.4-5.7) K/uL Lymph # (Auto) 3.2 H (0.6-2.4) K/uL [place] # (Auto) 1.0 H (0.0-0.8) K/uL Eos # (Auto) 0.3 (0.0-0.7) K/uL Baso # (Auto) 0.0 (0.0-0.1) K/uL Nucleated RBC % 0.0 /100WBC Nucleated RBCs # 0 K/uL INR 1.17 Sodium 140 (136-148) mmol/L Potassium 3.7 (3.5-5.1) mmol/L Chloride 104 (98-107) mmol/L Carbon Dioxide 26.2 (21.0-32.0) mmol/L BUN 24 H (7.0-18.0) mg/dL Creatinine 1.1 (0.8-1.3) mg/dL Est Cr Clr Drug Dosing 81.85 mL/min Estimated GFR (MDRD) > 60.0 ml/min Glucose 97 (74-106) mg/dL Hemoglobin A1c (4.5-6.2) % Calcium 9.1 (8.5-10.1) mg/dL Triglycerides (0-200) mg/dL Cholesterol (50-200) mg/dL LDL Cholesterol, Calc (60-180) mg/dL VLDL Cholesterol (5-55) mg/dL HDL Cholesterol (40-60) mg/dL Cholesterol/HDL Ratio (3.3-6.0) TSH 3rd Generation (0.36-3.74) uIU/mL 06/16/19 06/16/19 Range/Units 05:50 05:50 WBC (4.0-11.0) K/uL RBC (4.50-5.90) M/uL Hgb (13.0-17.0) g/dL Hct (38.0-50.0) % MCV (80.0-98.0) fL MCH (27.0-32.0) pg MCHC (31.0-37.0) g/dL RDW Std Deviation (28.0-62.0) fl RDW Coeff of Yue (11.0-15.0) % Plt Count (150-400) K/uL MPV (7.40-12.00) fL Neut % (Auto) (48.0-80.0) % Lymph % (Auto) (16.0-40.0) % [place] % (Auto) (0.0-15.0) % Eos % (Auto) (0.0-7.0) % Baso % (Auto) (0.0-1.5) % Neut # (Auto) (1.4-5.7) K/uL Lymph # (Auto) (0.6-2.4) K/uL [place] # (Auto) (0.0-0.8) K/uL Eos # (Auto) (0.0-0.7) K/uL Baso # (Auto) (0.0-0.1) K/uL Nucleated RBC % /100WBC Nucleated RBCs # K/uL INR Sodium (136-148) mmol/L Potassium (3.5-5.1) mmol/L Chloride (98-107) mmol/L Carbon Dioxide (21.0-32.0) mmol/L BUN (7.0-18.0) mg/dL Creatinine (0.8-1.3) mg/dL Est Cr Clr Drug Dosing mL/min Estimated GFR (MDRD) ml/min Glucose (74-106) mg/dL Hemoglobin A1c 5.6 (4.5-6.2) % Calcium (8.5-10.1) mg/dL Triglycerides 112 (0-200) mg/dL Cholesterol 178 (50-200) mg/dL LDL Cholesterol, Calc 115 (60-180) mg/dL VLDL Cholesterol 22 (5-55) mg/dL HDL Cholesterol 41 (40-60) mg/dL Cholesterol/HDL Ratio 4.3 (3.3-6.0) TSH 3rd Generation 2.03 (0.36-3.74) uIU/mL Med Orders - Current: Current Medications Atorvastatin Calcium (Lipitor) 80 mg PO BEDTIME [facility] Benzocaine/Menthol (Cepacol Sore Throat) 1 lozenge MUCMEM Q6H PRN PRN Reason: Sore Throat Last Admin: 06/13/19 16:26 Dose: 1 lozenge Furosemide (Lasix) 40 mg IVPUSH BIDDIURETIC [facility] Last Admin: 06/16/19 14:18 Dose: 40 mg Lisinopril (Prinivil) 5 mg PO DAILY [facility] Last Admin: 06/16/19 09:05 Dose: 5 mg Metoprolol Succinate (Toprol Xl) 50 mg PO DAILY [facility] Last Admin: 06/16/19 09:04 Dose: 50 mg Spironolactone (Aldactone) 12.5 mg PO DAILY [facility] Warfarin Sodium (Coumadin Sliding Scale) 0 each PO DAILY@1400 [facility] Last Admin: 06/16/19 14:12 Dose: Not Given Discontinued Medications Diltiazem HCl (Diltiazem) 25 mg IVPUSH ONETIME ONE Stop: 06/13/19 09:29 Last Admin: 06/13/19 09:41 Dose: 25 mg Furosemide (Lasix) 40 mg IVPUSH DAILY [facility] Last Admin: 06/14/19 09:26 Dose: 40 mg Sodium Chloride (Normal Saline) 1,000 mls @ 999 mls/hr IV STAT ONE Stop: 06/13/19 10:28 Last Admin: 06/13/19 09:41 Dose: 999 mls/hr Sodium Chloride (Normal Saline) 1,000 mls @ 125 mls/hr IV STAT [facility] Last Admin: 06/13/19 10:32 Dose: 125 mls/hr Magnesium Sulfate 2 gm/ Premix 50 mls @ 50 mls/hr IV ONETIME ONE Stop: 06/13/19 12:27 Last Admin: 06/13/19 11:59 Dose: 50 mls/hr Rivaroxaban (Xarelto) 15 mg PO NOW [facility] Stop: 06/13/19 09:37 Last Admin: 06/13/19 10:09 Dose: 15 mg Rivaroxaban (Xarelto) 20 mg PO [facility] Warfarin Sodium (Coumadin) 10 mg PO DAILY@1400 [facility] Stop: 06/14/19 14:01 Last Admin: 06/14/19 14:37 Dose: 10 mg Warfarin Sodium (Coumadin) 10 mg PO 06/15/19@1400 [facility] Stop: 06/15/19 14:01 Last Admin: 06/15/19 14:48 Dose: 10 mg Warfarin Sodium (Coumadin) 10 mg PO 06/16/19@1400 [facility] Stop: 06/16/19 14:01 Last Admin: 06/16/19 14:18 Dose: 10 mg - Problem List & Annotations (1) Heart failure with reduced ejection fraction SNOMED Code(s): 983695860 Code(s): I50.20 - UNSPECIFIED SYSTOLIC (CONGESTIVE) HEART FAILURE Status: Acute Current Visit: Yes (2) Atrial fibrillation with RVR SNOMED Code(s): 583348241475789 Code(s): I48.91 - UNSPECIFIED ATRIAL FIBRILLATION Status: Acute Current Visit: Yes - My Orders Last 24 Hours: My Active Orders 06/17/19 09:00 Spironolactone [Aldactone] 12.5 mg PO DAILY - Plan Plan:: Patient has been seen and examined by me along with resident Dr Wallace, I have discussed the case with the resident and agree wth his findings and plan as documented: A/P: 1. Acute CHF exacerbation with reduced EF 20-25% 2. Afib, rate controlled on warfarin Discussed with Cardiology, patient will need an outpatient cardiac cath to rule out CAD, although low risk for CAD Could be non-ischemic cardiomyopathy cont cardiac regimen Meds Cont Coumadin for Afib cont IV Lasix Fluid restriction to 1L monitor ins and outs Currently hemodynamically stable Likely d/c in AM
[2019-06-16] MEDS ORDERED: Furosemide 40 MG/4 ML VIAL IVPUSH ONE (17:44)
[2019-06-16] MEDS ORDERED: Iopamidol 755 MG/ML 500 ML Multipack Bottle IVPUSH STA (18:44)
--- NOTE | 2019-06-16 19:24 | CT ---
INDICATION: Decreased ejection fraction, AFib TECHNIQUE: CT chest pulmonary angiogram acquired with IV contrast. Approximately 50 cc of Isovue 370 contrast was administered intravenously. COMPARISON: None FINDINGS: There is mild cardiomegaly without bowing of the interventricular septum. The main pulmonary artery is normal in caliber.There are no filling defects within the pulmonary arteries to suggest a pulmonary embolus. There is no suspicious mediastinal, hilar or axillary adenopathy. The lungs are clear. Negative for focal consolidation, pleural effusion or pneumothorax. The visualized portions of the upper abdomen are unremarkable. There are mild degenerative changes of the thoracic spine. IMPRESSION: 1. Negative for pulmonary embolus. 2. Cardiomegaly. Dictated by Sammie Mendenhall MD @ 06/16/2019 7:22:39 PM Please note that all CT scans at this facility use dose modulation, iterative reconstruction, and/or weight-based dosing when appropriate to reduce radiation dose to as low as reasonably achievable. Dictated by: Sammie Mendenhall MD @ 06/16/2019 19:22:53 (Electronically Signed)
[2019-06-16] MEDS ORDERED: atorvaSTATin 40 MG Tab PO SCH (21:00)
[2019-06-17 06:32] LABS: BLOOD UREA NITROGEN,BUN 26 mg/dL (7.0-18.0); CARBON DIOXIDE,CO2 26.1 mmol/L (21.0-32.0); CHLORIDE,CL 104 mmol/L (98-107); GLUCOSE RANDOM 100 mg/dL (74-106); POTASSIUM,K 3.8 mmol/L (3.5-5.1); SODIUM,NA 140 mmol/L (136-148)
[2019-06-17] MEDS: Furosemide 40 MG/4 ML VIAL IVPUSH SCH ×2 (08:38→15:08)
[2019-06-17] MEDS ORDERED: Spironolactone 25 MG Tab PO SCH (09:00)
[2019-06-17] MEDS: Lisinopril 5 MG Tab PO SCH (09:50)
[2019-06-17] MEDS: Metoprolol Succinate 50 MG Tab.ER PO SCH (09:51)
--- NOTE | 2019-06-17 11:38 | PCM.DCSUM1 ---
Discharge Summary - Hospital Course HPI Initial Comments: 48 yo male who presented with several month history of exertional dyspnea, paroxysmal nocturnal dyspnea, and orthopnea. Patient also reports a 20 LB weight gain. He denies any chest pain, cough or fevers. He denies any palpitations. I the ED he was noted to be in atrial fibrillation with a HR in the 130s. He was given IV diltiazem and fluids with improvement in his heart rate. Patient was admitted for management of Afib RVR. HR improved, 1st set of trops was negative. 2D ECHO showed EF of 20-25%. Patient was started on IV Lasix for Acute systolic CHF, CTA chest was obtained to r/o PE. Patient was started on warfarin for anticoagulation. Cardiology recommended OP follow up for possible cardiac cath. Patient was eventually started on B-francis and Aldactone and discharged and asked to f/u with PCP and cardiology. Appointment with Dr Gutierrez was made for May. Diagnosis: Stroke: No - Discharge Data Discharge Date: 06/17/19 Discharge Disposition: Home, Self-Care 01 Condition: Fair - Referral to Home Health Primary Care Physician: PCP None - Discharge Diagnosis/Problem(s) (1) Heart failure with reduced ejection fraction SNOMED Code(s): 122100804 ICD Code: I50.20 - UNSPECIFIED SYSTOLIC (CONGESTIVE) HEART FAILURE Status: Acute (2) Atrial fibrillation with RVR SNOMED Code(s): 771828569361659 ICD Code: I48.91 - UNSPECIFIED ATRIAL FIBRILLATION Status: Acute - Patient Instructions Diet: Heart Healthy Diet Fluid Restriction: 1000 mL Driving: May Drive Today Showering/Bathing: May Shower Other/Special Instructions: If you develope chest pain, SOB please refer back to ER. - Discharge Plan *PRESCRIPTION DRUG MONITORING PROGRAM REVIEWED*: Not Applicable *COPY OF PRESCRIPTION DRUG MONITORING REPORT IN PATIENT SOBIA: Not Applicable Prescriptions/Med Rec: atorvaSTATin [Lipitor] 80 mg PO BEDTIME #30 tablet Furosemide [Lasix] 40 mg PO BID #90 tab Lisinopril [Prinivil] 5 mg PO DAILY #30 tablet Metoprolol Succinate [Toprol XL 50mg] 50 mg PO DAILY #30 tab.er Spironolactone [Aldactone] 12.5 mg PO DAILY #30 tablet Warfarin [Coumadin] 10 mg PO DAILY #30 tab Home Medications: Home Meds Furosemide [Lasix] 40 mg PO BID #90 tab 06/17/19 [Rx] Lisinopril [Prinivil] 5 mg PO DAILY #30 tablet 06/17/19 [Rx] Metoprolol Succinate [Toprol XL 50mg] 50 mg PO DAILY #30 tab.er 06/17/19 [Rx] Spironolactone [Aldactone] 12.5 mg PO DAILY #30 tablet 06/17/19 [Rx] Warfarin [Coumadin] 10 mg PO DAILY #30 tab 06/17/19 [Rx] atorvaSTATin [Lipitor] 80 mg PO BEDTIME #30 tablet 06/17/19 [Rx] Patient Handouts: Furosemide tablets, Metoprolol tablets, What You Need to Know About Warfarin, Spironolactone tablets, Warfarin tablets, Atorvastatin tablets, Atrial Fibrillation, Urbu-pd-Sody Referrals: Jean Sosa MD [Resident] - 07/06/19 2:00 pm Juany Burrell MD [Physician] - 06/22/19 2:30 pm - Discharge Summary/Plan Comment DC Time >30 min.: No Discharge Summary/Plan Comment: 48 yo male who presented with several month history of exertional dyspnea, paroxysmal nocturnal dyspnea, and orthopnea. Patient also reports a 20 LB weight gain. He denies any chest pain, cough or fevers. He denies any palpitations. I the ED he was noted to be in atrial fibrillation with a HR in the 130s. He was given IV diltiazem and fluids with improvement in his heart rate. Patient was admitted for management of Afib RVR. HR improved, 1st set of trops was negative. 2D ECHO showed EF of 20-25%. Patient was started on IV Lasix for Acute systolic CHF, CTA chest was obtained to r/o PE. Patient was started on warfarin for anticoagulation. Cardiology recommended OP follow up for possible cardiac cath. Patient was eventually started on B-francis and Aldactone and discharged and asked to f/u with PCP and cardiology. Appointment with Dr Gutierrez was made for May. - General Info Date of Service: 06/17/19 Admission Dx/Problem (Free Text: Admission Diagnosis/Problem Admission Diagnosis/Problem Atrial fibrillation Subjective Update: No acute events overnight. denies chest pain, dyspnea. Feels much better today he states. No palpitations, abdominal pain, diaphoresis. - Review of Systems General: Reports: No Symptoms HEENT: Reports: No Symptoms Pulmonary: Reports: No Symptoms Cardiovascular: Reports: No Symptoms Gastrointestinal: Reports: No Symptoms - Patient Data Vitals - Most Recent: Last Vital Signs Temp 36 C 06/17/19 08:00 Pulse 72 06/17/19 09:51 Resp 17 06/17/19 08:00 BP 114/70 06/17/19 09:51 Pulse Ox 94 L 06/17/19 08:00 Weight - Most Recent: 112 kg I&O - Last 24 hours: Intake & Output 06/16/19 06/17/19 06/17/19 22:59 06:59 14:59 Intake Total 900 600 Output Total 1175 1025 Balance -275 -425 Lab Results - Last 24 hrs: Laboratory Results - last 24 hr 06/17/19 06/17/19 06/17/19 Range/Units 06:05 06:05 06:05 WBC 11.71 H (4.0-11.0) K/uL RBC 4.95 (4.50-5.90) M/uL Hgb 16.3 (13.0-17.0) g/dL Hct 47.1 (38.0-50.0) % MCV 95.2 (80.0-98.0) fL MCH 32.9 H (27.0-32.0) pg MCHC 34.6 (31.0-37.0) g/dL RDW Std Deviation 44.3 (28.0-62.0) fl RDW Coeff of Yue 13 (11.0-15.0) % Plt Count 230 (150-400) K/uL MPV 11.40 (7.40-12.00) fL Neut % (Auto) 55.2 (48.0-80.0) % Lymph % (Auto) 31.3 (16.0-40.0) % [place] % (Auto) 10.2 (0.0-15.0) % Eos % (Auto) 3.0 (0.0-7.0) % Baso % (Auto) 0.3 (0.0-1.5) % Neut # (Auto) 6.5 H (1.4-5.7) K/uL Lymph # (Auto) 3.7 H (0.6-2.4) K/uL [place] # (Auto) 1.2 H (0.0-0.8) K/uL Eos # (Auto) 0.4 (0.0-0.7) K/uL Baso # (Auto) 0.0 (0.0-0.1) K/uL Nucleated RBC % 0.0 /100WBC Nucleated RBCs # 0 K/uL INR 1.29 Sodium 140 (136-148) mmol/L Potassium 3.8 (3.5-5.1) mmol/L Chloride 104 (98-107) mmol/L Carbon Dioxide 26.1 (21.0-32.0) mmol/L BUN 26 H (7.0-18.0) mg/dL Creatinine 1.1 (0.8-1.3) mg/dL Est Cr Clr Drug Dosing 81.85 mL/min Estimated GFR (MDRD) > 60.0 ml/min Glucose 100 (74-106) mg/dL Calcium 9.0 (8.5-10.1) mg/dL Med Orders - Current: Current Medications Atorvastatin Calcium (Lipitor) 80 mg PO BEDTIME [facility] Last Admin: 06/16/19 20:31 Dose: 80 mg Benzocaine/Menthol (Cepacol Sore Throat) 1 lozenge MUCMEM Q6H PRN PRN Reason: Sore Throat Last Admin: 06/13/19 16:26 Dose: 1 lozenge Furosemide (Lasix) 40 mg IVPUSH BIDDIURETIC [facility] Last Admin: 06/17/19 08:38 Dose: 40 mg Lisinopril (Prinivil) 5 mg PO DAILY [facility] Last Admin: 06/17/19 09:50 Dose: 5 mg Metoprolol Succinate (Toprol Xl) 50 mg PO DAILY [facility] Last Admin: 06/17/19 09:51 Dose: 50 mg Spironolactone (Aldactone) 12.5 mg PO DAILY [facility] Last Admin: 06/17/19 09:50 Dose: 12.5 mg Warfarin Sodium (Coumadin Sliding Scale) 0 each PO DAILY@1400 [facility] Last Admin: 06/16/19 14:12 Dose: Not Given Discontinued Medications Diltiazem HCl (Diltiazem) 25 mg IVPUSH ONETIME ONE Stop: 06/13/19 09:29 Last Admin: 06/13/19 09:41 Dose: 25 mg Furosemide (Lasix) 40 mg IVPUSH DAILY [facility] Last Admin: 06/14/19 09:26 Dose: 40 mg Furosemide (Lasix) 40 mg IVPUSH NOW ONE Stop: 06/16/19 17:45 Last Admin: 06/16/19 18:15 Dose: 40 mg Sodium Chloride (Normal Saline) 1,000 mls @ 999 mls/hr IV STAT ONE Stop: 06/13/19 10:28 Last Admin: 06/13/19 09:41 Dose: 999 mls/hr Sodium Chloride (Normal Saline) 1,000 mls @ 125 mls/hr IV STAT [facility] Last Admin: 06/13/19 10:32 Dose: 125 mls/hr Magnesium Sulfate 2 gm/ Premix 50 mls @ 50 mls/hr IV ONETIME ONE Stop: 06/13/19 12:27 Last Admin: 06/13/19 11:59 Dose: 50 mls/hr Iopamidol (Isovue Multipack-370 (76%)) 50 ml IVPUSH ONETIME [facility] Stop: 06/16/19 18:45 Last Admin: 06/16/19 18:45 Dose: 50 ml Rivaroxaban (Xarelto) 15 mg PO NOW [facility] Stop: 06/13/19 09:37 Last Admin: 06/13/19 10:09 Dose: 15 mg [facility] Warfar[facility] Sodium (Coumadin) 10 mg PO DAILY@1400 [facility] Stop: 06/14/19 14:01 Last Admin: 06/14/19 14:37 Dose: 10 mg Warfarin Sodium (Coumadin) 10 mg PO 06/15/19@1400 [facility] Stop: 06/15/19 14:01 Last Admin: 06/15/19 14:48 Dose: 10 mg Warfarin Sodium (Coumadin) 10 mg PO 06/16/19@1400 [facility] Stop: 06/16/19 14:01 Last Admin: 06/16/19 14:18 Dose: 10 mg - Exam General: Reports: Alert, Oriented Lungs: Reports: Clear to Auscultation, Normal Respiratory Effort Cardiovascular: Reports: Irregular Rhythm GI/Abdominal Exam: Normal Bowel Sounds, Soft, Non-Tender (Male) Exam: No Hernia, Normal Inspection, Normal Prostate
[2019-06-17] MEDS ORDERED: Potassium Chloride 10% 20 MEQ/15 ML Soln 30 ML UD Cup PO ONE (13:23)
[2019-06-17] MEDS ORDERED: Magnesium Oxide 400 MG Tab PO ONE (13:23)
[2019-06-17] MEDS: Warfarin Sliding Scale PO SCH (15:08)
== END 2019-06-17 12:00 | disposition home or self-care (01) | DRG 293 ==
LOC: MW.ED 09:20 → EDBD 09:20 → MW.MS 10:31 → OBSVTOIN 13:49
PROVIDERS: ADMIT Internal Medicine; ATTEND Internal Medicine
DX: I50.21 Acute systolic (congestive) heart failure (principal); I48.91 Unspecified atrial fibrillation; F17.210 Nicotine dependence, cigarettes, uncomplicated
CPT/HCPCS: 36415; 71045; 71045-26; 71275; 71275-26; 80048; 80053; 80061; 81003; 83036; 83735; 83880; 84443; 84484; 85025; 85610; 93005; 93306; 96361; 96374; 99284; 99285-25; A9270-GY; J1940; J3475; J3490; J7040; Q9967